=== PATIENT | male | born 1980 | race Caucasian/White ===

== ENCOUNTER 2016-11-22 15:27 | Emergency (ER) | payer OTHER | END 2016-11-22 16:28 | disposition home or self-care (01) | LOC: ER1 15:27 | DX: L02.415 Cutaneous abscess of right lower limb (principal); I10 Essential (primary) hypertension; Z87.891 Personal history of nicotine dependence; Z79.899 Other long term (current) drug therapy | CPT/HCPCS: 10060; 87070; 87077; 87186; 87205; 99283 ==

== ENCOUNTER → 2016-11-27 | Outpatient (CLI) | payer OTHER | LOC: LAB 09:00 | DX: B18.2 Chronic viral hepatitis C (principal); B19.10 Unspecified viral hepatitis B without hepatic coma | CPT/HCPCS: 36415; 80307 ==

== ENCOUNTER → 2016-12-04 | Outpatient (CLI) | payer OTHER ==
[2016-12-04 13:11] LABS: HEMOGLOBIN 13.4 gm/dl (14.0-17.5); RED BLOOD COUNT 4.73 M/UL (4.20-5.50); WHITE BLOOD COUNT 5.8 K/UL (4.5-11.0)
[2016-12-04 13:27] LABS: BUN/CREATININE RATIO 28 (0-10)
== END ==
LOC: US 11-26 09:45
PROVIDERS: Internal Medicine Gastroenterology
DX: B18.2 Chronic viral hepatitis C (principal); B19.10 Unspecified viral hepatitis B without hepatic coma
CPT/HCPCS: 36415; 76700; 80053; 80074; 80307; 82103; 82105; 82172; 82247; 82390; 82728; 82977; 83010; 83540; 83550; 83883; 84460; 85025; 85610; 86039; 86235; 86255; 86692; 87350; 87380; 87390; 87517; 87521; 87902; G0480; Q9962